=== PATIENT | female | born 1985 | race Caucasian/White ===

== ENCOUNTER 2022-06-11 13:27 | Emergency (ER) | payer OTHER ==
[2022-06-11 14:15] LABS: Urine Blood Trace-lysed (Negative); Urine Glucose Negative (Negative); Urine Protein 1+ (Negative); Urine Specific Gravity 1.025 (1.005-1.030); Urine pH 5.5 (5.0-7.0)
[2022-06-11 14:31] LABS: Urine Bacteria <20 /HPF (<20); Urine Crystals Unidentified Few /HPF (None Seen); Urine Mucus Slight /HPF (None Seen); Urine WBC Clump Occasional /HPF (None Seen)
[2022-06-11 14:54] LABS: Urine Specific Gravity/Preg 1.025 (1.005-1.030)
[2022-06-11 15:03] LABS: SARS-COV-2 RT PCR NEGATIVE (NEGATIVE)
--- NOTE | 2022-06-11 16:42 | RAD REPORT ---
EXAM DESCRIPTION: [facility]Stone Protocol - 06/11/2022 4:24 pm CLINICAL HISTORY: right flank pain COMPARISON: None TECHNIQUE: CT of the abdomen and pelvis was performed without IV contrast. All CT scans are performed using dose optimization technique as appropriate and may include automated exposure control or mA/KV adjustment according to patient size. FINDINGS: Lower chest: No acute abnormality. Liver: No acute abnormality or suspicious lesions. Biliary: No biliary ductal dilatation. Stomach: No significant focal abnormality. Duodenum: No significant focal abnormality. Pancreas: No significant abnormality. Spleen: No significant abnormality. Adrenal: No suspicious lesions. Kidney/ureter: No hydronephrosis. Punctate left renal calculi. Calcifications in the pelvis likely re presenting phleboliths. No ureteral calculi identified. Retroperitoneum: No retroperitoneal adenopathy. Vascular: No aneurysm. Bowel: No significant focal abnormality. Normal appendix. Peritoneum: Small volume of pelvic fluid which is abnormal but nonspecific. Bladder: Grossly unremarkable. Reproductive: No adnexal masses. Bones: No acute fracture. 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 Other: n/a IMPRESSION: No acute intra-abdominal or pelvic finding. Nonobstructive left nephrolithiasis. Normal appendix. Free fluid in the pelvis which is presumably physiologic.
--- NOTE | 2022-06-11 16:54 | ER ---
Nurse's Notes [facility] Name: Rachael Ruiz Age: 36 yrs Sex: Female : 1985 Arrival Date: 06/11/2022 Time: 13:32 Bed 9 Private MD: Diagnosis: Acute upper respiratory infection, unspecified;Volume depletion, unspecified;Nephrolithasis not obstruction/calcium oxylates;UTI/ Urinary tract infection, site not specified Presentation: 06/11 13:48 Chief complaint: Patient states: sore throat, chills, body aches, fever, cough with kb3 congestion since Sunday. Pt is at [facility] for meth addiction and had a tele visit with MD yesterday, dx with strep without lab testing and started on amoxicillin last night. Coronavirus screen: Vaccine status: Patient reports receiving the 2nd dose of the covid vaccine. Client denies travel out of the [place] in the last 14 days. Ebola Screen: Patient negative for fever greater than or equal to 101.5 degrees Fahrenheit, and additional compatible Ebola Virus Disease symptoms Patient denies exposure to infectious person. Patient denies travel to an Ebola-affected area in the 21 days before illness onset. Initial Sepsis Screen: Does the patient meet any 2 criteria? No. Patient's initial sepsis screen is negative. Does the patient have a suspected source of infection? No. Patient's initial sepsis screen is negative. Risk Assessment: Do you want to hurt yourself or someone else? Patient reports no desire to harm self or others. Onset of symptoms was June 05, 2022. 13:48 Method Of Arrival: Ambulatory kb3 13:48 Acuity: ERNST 3 kb3 Triage Assessment: 13:55 General: Appears in no apparent distress. Behavior is calm, cooperative. Pain: kb3 Complains of pain in back of neck, posterior chest and back Pain does not radiate. Pain currently is 10 out of 10 on a pain scale. EENT: Throat is pink Reports nasal congestion. 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 - Social history:: Smoking status: Patient reports the use of cigarette tobacco products, smokes one pack cigarettes per day. Screenin:30 Abuse screen: Denies threats or abuse. Denies injuries from another. Nutritional hb screening: No deficits noted. Tuberculosis screening: No symptoms or risk factors identified. Fall Risk None identified. Assessment: 14:30 General: Appears in no apparent distress. Behavior is calm, cooperative. Pain: Pain hb currently is 10 out of 10 on a pain scale. Neuro: Level of Consciousness is awake, alert, obeys commands, Oriented to person, place, time, situation. Cardiovascular: Patient's skin is warm and dry. Respiratory: Reports pain with cough pain with respiration Respiratory effort is even, unlabored, Respiratory pattern is regular, symmetrical. GI: Reports nausea. : No signs and/or symptoms were reported regarding the genitourinary system. EENT: Reports sore throat, pain with swallowing. Derm: Skin is pink, warm \T\ dry. Musculoskeletal: Reports body aches. 15:58 Reassessment: Patient appears in no apparent distress at this time. Patient and/or hb family updated on plan of care and expected duration. Pain level reassessed. Patient is alert, oriented x 3, equal unlabored respirations, skin warm/dry/pink. 17:00 Reassessment: Patient appears in no apparent distress at this time. Patient and/or hb family updated on plan of care and expected duration. Pain level reassessed. Patient is alert, oriented x 3, equal unlabored respirations, skin warm/dry/pink. Vital Signs: 13:48 BP 114 / 62; Pulse 96; Resp 20; Temp 100; Pulse Ox 98% ; Weight 54.88 kg; Height 5 ft. kb3 7 in. (170.18 cm); Pain 10/10; 17:00 BP 124 / 68; Pulse 82; Resp 16; Pulse Ox 99% on R/A; hb 13:48 Body Mass Index 18.95 (54.88 kg, 170.18 cm) kb3 ED Course: 13:32 Patient arrived in ED. am2 13:33 Mesfin Coe PA is PHCP. cp 13:33 Devin Villarreal DO is Attending Physician. cp 13:55 Triage completed. kb3 13:59 Arm band placed on right wrist. kb3 14:16 Urine --Ancillary (enter results) Sent. hb 14:26 Strep Sent. kb3 14:26 Urine Microscopic Only Sent. kb3 14:26 COVID-19/FLU A+B/RSV Sent. kb3 14:30 Patient has correct armband on for positive identification. hb 14:30 No provider procedures requiring assistance completed. hb 14:45 Nikky Schmitz, RN is Primary Nurse. hb 16:25 [facility] Protocol In Process Unspecified. EDMS 17:14 Patient did not have IV access during this emergency room visit. hb Administered Medications: 17:02 Drug: Rocephin (cefTRIAXone) 1 grams Route: IM; Site: right deltoid; hb 17:17 Follow up: Response: No adverse reaction hb Medication: 14:30 VIS not applicable for this client. hb Outcome: 16:54 Discharge ordered by MD. cp 17:14 Discharged to home ambulatory. hb 17:14 Condition: stable 17:14 Discharge instructions given to patient, Instructed on discharge instructions, follow up and referral plans. medication usage, Demonstrated understanding of instructions, follow-up care, medications, Prescriptions given X 1. 17:17 Patient left the ED. hb Signatures: Dispatcher [employer] EDNV Mesfin Coe PA PA cp Nikky Schmitz, RN RN hb Mary Kamara am2 Sneha Davies, RN RN kb3
--- NOTE | 2022-06-11 16:54 | EDPHYS ---
Physician Documentation [facility] Name: Rachael Ruiz Age: 36 yrs Sex: Female : 1985 Arrival Date: 06/11/2022 Time: 13:32 Bed 9 Private MD: ED Physician Devin Villarreal HPI: 06/11 14:15 This 36 yrs old Female presents to ER via Ambulatory with complaints of Sore Throat, cp Chest Pain, Fever, Flank Pain. 14:15 The patient presents with sore throat. cp 14:15 Associated signs and symptoms: Pertinent positives: chest pain, cough, fever, right cp flank pain. 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 - Social history:: Smoking status: Patient reports the use of cigarette tobacco products, smokes one pack cigarettes per day. ROS: 14:20 Constitutional: Positive for body aches, chills, Negative for fever, poor PO intake. cp 14:20 Eyes: Negative for injury, pain, redness, and discharge. cp 14:20 ENT: Positive for sore throat, Negative for drainage from ear(s), ear pain, difficulty swallowing, difficulty handling secretions. 14:20 Cardiovascular: Positive for chest pain, with cough. 14:20 Respiratory: Positive for cough, Negative for shortness of breath, wheezing. 14:20 Abdomen/GI: Negative for abdominal pain, vomiting, diarrhea, constipation. 14:20 Back: Positive for flank pain, on the right. 14:20 Skin: Negative for rash. 14:20 Neuro: Negative for altered mental status, syncope, weakness. 14:20 All other systems are negative. Exam: 14:25 Constitutional: The patient appears in no acute distress, alert, awake, non-toxic, well cp developed, well nourished. 14:25 Head/Face: Normocephalic, atraumatic. cp 14:25 Eyes: Periorbital structures: appear normal, Conjunctiva: normal, no exudate, no injection, Sclera: no appreciated abnormality, Lids and lashes: appear normal, bilaterally. 14:25 ENT: External ear(s): are unremarkable, Ear canal(s): are normal, clear, TM's: dullness, bilaterally, Nose: is normal, Mouth: Lips: moist, Oral mucosa: moist, Posterior pharynx: Airway: no evidence of obstruction, patent, Tonsils: no enlargement, no exudate, erythema, that is mild, exudate, is not appreciated. 14:25 Neck: ROM/movement: is normal, is supple, without pain, no range of motions limitations, no meningismus, Lymph nodes: no appreciated lymphadenopathy. 14:25 Chest/axilla: Inspection: normal. 14:25 Cardiovascular: Rate: tachycardic, Rhythm: regular. 14:25 Respiratory: the patient does not display signs of respiratory distress, Respirations: normal, no use of accessory muscles, no retractions, labored breathing, is not present, Breath sounds: are clear throughout, no decreased breath sounds, no stridor, no wheezing. 14:25 Abdomen/GI: Inspection: abdomen appears normal, Palpation: abdomen is soft and non-tender, in all quadrants. 14:25 Back: pain, that is mild, of the right mid back, ROM is normal. 14:25 Skin: no rash present. 14:25 Neuro: Orientation: to person, place \T\ time. Mentation: is normal, Motor: moves all fours, strength is normal, Sensation: is normal. Vital Signs: 13:48 BP 114 / 62; Pulse 96; Resp 20; Temp 100; Pulse Ox 98% ; Weight 54.88 kg; Height 5 ft. kb3 7 in. (170.18 cm); Pain 10/10; 17:00 BP 124 / 68; Pulse 82; Resp 16; Pulse Ox 99% on R/A; hb 13:48 Body Mass Index 18.95 (54.88 kg, 170.18 cm) kb3 MDM: 14:06 Patient medically screened. 16:54 Data reviewed: vital signs, nurses notes, lab test result(s), radiologic studies, CT cp scan. 16:54 Counseling: I had a detailed discussion with the patient and/or guardian regarding: the cp historical points, exam findings, and any diagnostic results supporting the discharge/admit diagnosis, lab results, radiology results, to return to the emergency department if symptoms worsen or persist or if there are any questions or concerns that arise at home. Response to treatment: the patient's symptoms have markedly improved after treatment, and as a result, I will discharge patient. 06/11 14:03 Order name: COVID-19/FLU A+B/RSV; Complete Time: 15:06 06/11 15:06 Interpretation: Reviewed. 06/11 14:03 Order name: Urine Microscopic Only; Complete Time: 15:02 06/11 15:02 Interpretation: Normal except: UWBC 20-50; URBC 11-20; UWBC Clump Occasional. 06/11 14:03 Order name: Strep; Complete Time: 15:02 06/11 14:15 Order name: Urine --Ancillary (enter results); Complete Time: 15:02 06/11 14:15 Order name: Urine Dipstick-Ancillary; Complete Time: 14:35 [facility] 06/11 14:35 Interpretation: Normal except: UKET Trace; UBLD Trace-lysed; UPROT 1+; UESTR Trace. 06/11 14:46 Order name: Throat Culture [facility] 06/11 14:03 Order name: Urine Dipstick-Ancillary (obtain specimen); Complete Time: 14:17 06/11 14:03 Order name: Urine Test (obtain specimen); Complete Time: 14:17 06/11 14:58 Order name: Urine Culture [facility] 06/11 15:06 Order name: CT Stone Protocol; Complete Time: 16:50 cp Administered Medications: 17:02 Drug: Rocephin (cefTRIAXone) 1 grams Route: IM; Site: right deltoid; hb 17:17 Follow up: Response: No adverse reaction hb Disposition Summary: 06/11/22 16:54 Discharge Ordered Location: Home cp Condition: Stable cp Diagnosis - Acute upper respiratory infection, unspecified cp - Volume depletion, unspecified cp - Nephrolithasis not obstruction/calcium oxylates cp - UTI/ Urinary tract infection, site not specified cp Followup: cp - With: Emergency Department - When: As needed - Reason: Worsening of condition Followup: cp - With: Private Physician - When: 5 - 6 days - Reason: Recheck today's complaints, Continuance of care, Re-evaluation by your physician Discharge Instructions: - Discharge Summary Sheet cp - Kidney Stones cp - Upper Respiratory Infection, Adult cp - Dehydration, Adult, [id number] cp - Rehydration, Adult cp - Urinary Tract Infection, Adult cp Forms: - Medication Reconciliation Form cp - Thank You Letter cp - Antibiotic Education cp - Prescription Opioid Use cp Prescriptions: - cefpodoxime 200 mg Oral Tablet - take 1 tablet by ORAL route every 12 hours with food; 20 tablet; Refills: 0, cp Product Selection Permitted Addendum: 06/12/2022 18:21 Co-signature as Attending Physician, Devin Villarreal DO I was immediately available onsite m s3 in the emergency department for consultation in the care of the patient. Signatures: Dispatcher [employer] EDMS Mesfin Coe PA PA cp Baxter, Heather RN RN Devin Villarreal DO DO ms3 Sneha Davies, RN RN kb3
[2022-06-11] MEDS ORDERED: LIDOCAINE 1% MPF 2 ML AMPULE ONE (17:03)
[2022-06-11] MEDS ORDERED: CEFTRIAXONE 1000 MG/VIAL ONE (17:03)
[2022-06-11 17:24] VITALS: TEMP 100
[2022-06-11 17:25] VITALS: BP 124/68; O2SAT 99
== END 2022-06-11 17:17 | disposition home or self-care (01) ==
LOC: ER 13:27
DX: J06.9 Acute upper respiratory infection, unspecified (principal); E86.9 Volume depletion, unspecified; N39.0 Urinary tract infection, site not specified; N20.0 Calculus of kidney; F17.210 Nicotine dependence, cigarettes, uncomplicated; Z20.822 Contact with and (suspected) exposure to COVID-19
CPT/HCPCS: 87070; 87088; 87086; 81025; 87081; 0241U; 76377; 74176; 96372; 99284; 81003; 81015